=== PATIENT | male | born 1975 | race Caucasian/White ===

== ENCOUNTER → 2019-12-03 11:56 | Outpatient (BNVA) | payer OTHER, SELFPAY | PROVIDERS: Family Provider Nurse Practitioner Family; PCP Nurse Practitioner Family; Visit Provider Nurse Practitioner Family | DX: I10 Essential (primary) hypertension (principal); K21.9 Gastro-esophageal reflux disease without esophagitis; R53.83 Other fatigue; F41.9 Anxiety disorder, unspecified; F32.9 Major depressive disorder, single episode, unspecified; E34.9 Endocrine disorder, unspecified; E55.9 Vitamin D deficiency, unspecified; Z79.899 Other long term (current) drug therapy | CPT/HCPCS: 80053; 80061; 81001; 82607; 83036; 84207; 84425; 84443; 85025 ==

== ENCOUNTER 2019-12-21 08:38 | Outpatient (CLI) | payer OTHER, SELFPAY ==
[2019-12-21 09:42] LABS: Testosterone Total 298.9 ng/dL (249-836)
[2019-12-21 09:47] LABS: Folate Level 11.5 ng/mL (4.5-32.2)
[2019-12-21 10:41] LABS: 25 Hydroxy Vitamin D 32 ng/mL (30-100)
--- NOTE | 2020-02-24 14:40 | PC.NURSE ---
All patient care and charting by SN Bailey (also SONDRA) directly supervised by this nurse.
== END 2019-12-21 08:39 | disposition home or self-care (01) ==
LOC: LAB 08:41
PROVIDERS: PCP Nurse Practitioner Family; Visit Provider Nurse Practitioner Family
DX: F32.9 Major depressive disorder, single episode, unspecified (principal); F41.9 Anxiety disorder, unspecified; R53.83 Other fatigue; E34.9 Endocrine disorder, unspecified; E55.9 Vitamin D deficiency, unspecified
CPT/HCPCS: 82306; 82746; 84403

== ENCOUNTER 2020-04-29 13:45 | Outpatient (CLI) | payer OTHER, SELFPAY ==
--- NOTE | 2020-04-29 13:51 | XR_ITS ---
WS: [id number] Exam: XR lumbar spine 6V w f/e [id number] Date/Time of Exam: 04/29/2020 1:53 PM Reason For Exam: M54.5 - Low back pain No fracture or dislocation. Intervertebral disks are relatively well preserved. No subluxation or ins tability on flexion or extension views. Posterior elements are intact. SI joints are open. Numerous s mall calcifications superimposing the bilateral renal silhouettes and most likely represent multiple renal calculi. XR/XR lumbar spine 6V w f/e [id number] IMPRESSION: 1. Unremarkable lumbar spine series. No subluxation or instability on flexion o r extension views. 2. Numerous small calcifications superimposing the bilateral renal silhouettes most likely renal stones.
== END 2020-04-29 13:46 | disposition home or self-care (01) ==
LOC: RADSHAW 13:46 → RAD 13:46
PROVIDERS: PCP Nurse Practitioner Family; Visit Provider Nurse Practitioner Family
DX: M54.5 Low back pain (principal)
CPT/HCPCS: 72114

== ENCOUNTER 2020-05-11 08:32 | Outpatient (CLI) | payer OTHER, SELFPAY ==
--- NOTE | 2020-05-11 09:35 | MR_ITS ---
WS: [id number] MRI LUMBAR SPINE NONCONTRAST HISTORY: M54.5 - Low back pain COMPARISON: None available. TECHNIQUE: Sagittal and axial multisequence imaging is submitted. Mild RIGHT convex curvature thoracic spine. Normal lumbar alignment with no compression fractures or marrow edema. Mild disc space desiccation at L3-4, L4-5 and L5-S1. Conus terminates normally at L1. L1-L2: Normal. L2-L3: Mild facet joint arthritis and ligamentum flavum hypertrophy. L3-L4: Mild annular disc bulging with a moderate central and RIGHT paracentral disc protrusion. Disc protrusion is deforming the thecal sac and encroaching into the RIGHT lateral recess. Mild narrowing of the central canal. Mild bilateral foraminal stenosis. L4-L5: Mild annular disc bulging and osteophytic ridging. Mild ligamentum flavum hypertrophy and face t disease. Very mild narrowing of the foramen bilaterally L5-S1: Large RIGHT lateral recess and paracentral disc protrusion causing significant deformity of th e RIGHT lateral thecal sac and displacement of the nerve roots. Disc protrusion measures 18 x 12 mm. RIGHT S1 nerve root is posteriorly positioned within the thecal sac and mildly enlarged consistent wi th inflammation. Mild bilateral foraminal stenosis due to osteophyte disease. MR/MR lumbar spine wo con* 10120 IMPRESSION: 1. Large RIGHT paracentral and lateral recess disc protrusion measuring 18 x 1 2 mm at L5-S1. Significant deformity and displacement of the thecal sac and ner ve roots. 2. Moderate central and RIGHT paracentral disc protrusion at L3-4 with encroac hment on the thecal sac and RIGHT lateral recess. 3. Mild bilateral foraminal stenosis due to disc osteophyte disease from L3-4 to L5-S1.
--- NOTE | 2020-05-11 10:00 | CT_ITS ---
WS: [id number] CT ABDOMEN AND PELVIS NONCONTRAST HISTORY: N20.0 - Calculus of kidney TECHNIQUE: Imaging performed through the abdomen and pelvis. Coronal and sagittal reformats are submi tted. All CT scans at [facility] use at least one of these dose optimization techniques: automated exposure control; mA and/or kV adjustment per patient size (includes targeted exams where d ose is matched to clinical indication); or iterative reconstruction. DLP: 1265.38 mGycm COMPARISON: 03/13/2018 Lower thorax: Moderate bronchovascular wall thickening in a linear manner in the RIGHT medial lower l obe. There is adjacent scarring and tenting extending to the pleura. These findings have been present since 03/13/2018 with very mild progression. Heart size is normal. Liver: Normal size liver. No mass or bile duct dilatation. Gallbladder: Normal gallbladder. Pancreas: Normal size and attenuation. Normal pancreatic duct. No pancreatitis or mass. Spleen: Normal. Adrenal glands: Normal. No mass. Right kidney: Microcalcifications in the RIGHT renal pelvis. The largest measures 3 mm in the lower p ole. No obstruction or solid mass. Normal RIGHT ureter. Left kidney: Microcalcifications in the LEFT renal pelvis with the largest measuring 3 mm. No hydrone phrosis or ureteral obstruction. Aorta: Normal abdominal aorta, no aneurysm or atherosclerosis. No free fluid, intraperitoneal air or significant lymphadenopathy. GI tract: Normal appendix. No GI tract obstruction. Abdominal wall: Fat-containing umbilical hernia. Pelvis: Normal. Osseous structures: Unremarkable. CT/CT kidney stone [id number] IMPRESSION: 1. No acute abdominal or pelvic abnormalities. 2. Bilateral nephrolithiasis with no hydronephrosis or obstruction. No uretera l calcification. 3. Normal appendix.
== END 2020-05-11 08:33 | disposition home or self-care (01) ==
PROVIDERS: PCP Nurse Practitioner Family; Visit Provider Nurse Practitioner Family
DX: N20.0 Calculus of kidney (principal); M51.26 Other intervertebral disc displacement, lumbar region; M48.061 Spinal stenosis, lumbar region without neurogenic claudication; M48.07 Spinal stenosis, lumbosacral region
CPT/HCPCS: 72148; 74176

== ENCOUNTER 2020-05-30 06:00 | Outpatient (RCR) | payer OTHER, SELFPAY | END 2020-06-09 23:59 | disposition home or self-care (01) | LOC: SPT 06:00 | PROVIDERS: PCP Nurse Practitioner Family; Referring Provider Orthopaedic Surgery; Visit Provider Orthopaedic Surgery | DX: M51.27 Other intervertebral disc displacement, lumbosacral region (principal) | CPT/HCPCS: 97110; 97161 ==

== ENCOUNTER 2020-06-10 06:00 | Outpatient (RCR) | payer BC, OTHER, SELFPAY | END 2020-06-29 10:39 | disposition home or self-care (01) | LOC: SPT 06:00 | PROVIDERS: PCP Nurse Practitioner Family; Referring Provider Orthopaedic Surgery; Visit Provider Orthopaedic Surgery | DX: M51.27 Other intervertebral disc displacement, lumbosacral region (principal) | CPT/HCPCS: 97110 ==

== ENCOUNTER → 2020-07-05 16:27 | Outpatient (BNVA) | payer BC, SELFPAY | PROVIDERS: PCP Nurse Practitioner Family; Visit Provider Nurse Practitioner Family | DX: Z13.6 Encounter for screening for cardiovascular disorders (principal); I10 Essential (primary) hypertension; E55.9 Vitamin D deficiency, unspecified; D64.9 Anemia, unspecified; R53.83 Other fatigue; R42 Dizziness and giddiness; Z79.899 Other long term (current) drug therapy; H66.93 Otitis media, unspecified, bilateral | CPT/HCPCS: 80053; 80061; 81000; 82306; 83036; 83550; 83735; 83921; 84439; 84443; 84481; 85025 ==

== ENCOUNTER 2020-07-13 06:00 | Outpatient (RCR) | payer BC, SELFPAY | END 2020-08-07 23:59 | disposition home or self-care (01) | LOC: SPT 06:00 | PROVIDERS: PCP Nurse Practitioner Family; Visit Provider Nurse Practitioner Family | DX: R42 Dizziness and giddiness (principal) | CPT/HCPCS: 95992; 97162 ==

== ENCOUNTER 2020-11-11 12:11 | Outpatient (CLI) | payer BC, SELFPAY ==
--- NOTE | 2020-11-11 12:45 | USCV_ITS ---
Marcus Awan Age: 45 Gender: M : 1975 Exam Date: 11/11/2020 12:27 Ordering Phys: KELVIN Durbin APRN [employer] Technologist: Opal Tavarez [place] [facility] [place]: CHEST PAIN BP: 117 / 70 HR: 86 Rhythm: Sinus Technical Quality: Adequate MEASUREMENTS (Male / Female) Normal Values 2D ECHO LV Diastolic Diameter PLAX 3.1 cm 4.2 - 5.9 / 3.9 - 5.3 cm LV Systolic Diameter PLAX 1.7 cm LV Chamber Size 3.7 cm IVS Diastolic Thickness 1.5 cm 0.6 - 1.0 / 0.6 - 0.9 cm IVS Systolic Thickness 2.1 cm LVPW Diastolic Thickness 2.7 cm 0.6 - 1.0 / 0.6 - 0.9 cm LVPW Systolic Thickness 3.0 cm RV Chamber Size 2.7 cm LVOT Diameter 2.1 cm LV Ejection Fraction 2D Teich 77.7 % LV Ejection Fraction MOD 2C 67.2 % LV Ejection Fraction 2C AL 67.6 % LA Diameter 2.7 cm LA Width 2.4 cm LA Height 5.1 cm RA Width 3.3 cm RA Height 4.0 cm Aorta at Sinotubular Diameter 2.7 cm M-MODE LV Diastolic Diameter MM 4.3 cm 4.2 - 5.9 / 3.9 - 5.3 cm LV Systolic Diameter MM 2.6 cm LV Ejection Fraction MM Teich 70.4 % IVS Diastolic Thickness MM 1.0 cm 0.6 - 1.0 / 0.6 - 0.9 cm IVS Systolic Thickness MM 1.2 cm LVPW Diastolic Thickness MM 0.9 cm 0.6 - 1.0 / 0.6 - 0.9 cm LVPW Systolic Thickness MM 1.4 cm Aortic Annulus Diameter 4.4 cm LA Ao Ratio MM 0.7 MV E Point Septal Separation 0.6 cm DOPPLER AV Peak Velocity 154.0 cm/s LVOT Peak Velocity 99.7 cm/s AV Area Cont Eq vti 2.1 cm squared AV Area Cont Eq pk 2.3 cm squared MV Area PHT 4.5 cm squared Mitral E to A Ratio 0.9 MV E' Velocity 41.0 cm/s Mitral E to MV E' Ratio 5.3 Mitral E to LV E' Lateral Ratio 5.3 Mitral E to LV E' Septal Ratio 5.4 TR Peak Velocity 214.3 cm/s TR Peak Gradient 18.4 mmHg TV Peak E Velocity 50.0 cm/s Right Atrial Pressure 3.0 mmHg Pulmonary Artery Systolic Pressu 21.4 mmHg PV Peak Velocity 66.0 cm/s RV Acceleration Time 0.2 s RV Ejection Time 0.4 s RV AcT/ET 0.5 FINDINGS Left Ventricle Normal left ventricular size and systolic function, EF 56 %. Mild left ventricular hypertrophy. No regional wall motion abnormalities. Grade I/IV diastolic dysfunction (abnormal relaxation filling pattern), normal to mildly elevated filling pressures. Right Ventricle The right ventricle is normal in size and function. Right Atrium The right atrium is normal in size. Left Atrium The left atrium is normal in size. Mitral Valve No gross abnormalities noted Aortic Valve Trace aortic valve regurgitation. Aortic valve is minimally thickened Tricuspid Valve No gross abnormalities noted Pulmonic Valve Pulmonic valve not well visualized. Pericardium Normal pericardium without effusion. Aorta Normal ascending aorta dimension. CONCLUSIONS Normal left ventricular size and systolic function, EF 56 %. Mild left ventricular hypertrophy. No regional wall motion abnormalities. Grade I/IV diastolic dysfunction (abnormal relaxation filling pattern), normal to mildly elevated filling pressures. Trace aortic valve regurgitation. Aortic valve is minimally thickened. There is no pericardial effusion. There are no intracardiac masses. No previous study is available for comparison. Dr Hardeep Cedillo MD [facility] (Electronically Signed) Final Date: 14 November 2020 17:26 S
== END 2020-11-11 12:12 | disposition home or self-care (01) ==
PROVIDERS: PCP Nurse Practitioner Family; Visit Provider Nurse Practitioner Family
DX: R07.89 Other chest pain (principal); R53.83 Other fatigue; I35.1 Nonrheumatic aortic (valve) insufficiency
CPT/HCPCS: 93306

== ENCOUNTER 2021-01-23 12:20 | Outpatient (CLI) | payer BC, SELFPAY ==
[2021-01-23 12:30] VITALS: BMI 30.4
--- NOTE | 2021-01-23 13:00 | ECG_ITS ---
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 Interpretive Statements NAME OF STUDY: TREADMILL STRESS TEST INDICATION: [Chest Pain, ] EXERCISE DATA: The patient was exercised by Harry protocol. Baseline heart rate was 67 beats per minute. Baseline blood pressure was 126/86 millimeters of mercury. Target heart rate was 148 beats per minute. Maximum heart rate achieved was 157, which was 106% of the target heart rate. Maximum blood pressure was 168/73 millimeters of mercury. Total exercise time was 10 minutes and 31 seconds. Maximum METs achieved was 13.5, maximum VO2 was 47.3. The reason for ending the test was completion of the protocol. The patient complained of shortness of breath during the stress test, which then resolved at the end of the test. ELECTROCARDIOGRAM: BASELINE: Showed sinus rhythm, normal axis, no significant ST-T changes at the baseline noted. [] EXERCISE: At the peak exercise level, [] No significant ST-T changes suggestive of ischemia noted. [] RECOVERY: During the recovery period, heart rate dropped appropriately. No significant ST-T changes in the recovery suggestive of ischemia noted. [] CONCLUSION: 1. Exercise capacity excellent. 2. Heart rate response was appropriate. 3. Blood pressure response was appropriate. 4. Symptoms not suggestive of ischemia. 5. Electrocardiogram was not suggestive of ischemia. Electronically Signed On 02-19-2021 12:47:35 CDT by Robin Torre M.D. [email or web address]
[2021-01-23 13:06] VITALS: BP 141/88; PULSE 97
== END 2021-01-23 12:21 | disposition home or self-care (01) ==
PROVIDERS: PCP Nurse Practitioner Family; Visit Provider Internal Medicine
DX: R07.89 Other chest pain (principal); R53.83 Other fatigue
CPT/HCPCS: 93017

== ENCOUNTER 2021-08-25 08:13 | Outpatient (CLI) | payer BC, SELFPAY ==
[2021-08-25 09:04] LABS: Basophils % 0.5 %; Eosinophils # 0.1 10^3/uL (0.0-0.8); Eosinophils % 1.4 %; Hematocrit 48.2 % (42.0-52.0); Hemoglobin 16.3 g/dL (11.7-16.6); Lymphocytes # 1.4 10^3/uL (0.8-4.8); Lymphocytes % 32.9 %; Mean Corpuscular HGB Conc 33.8 g/dL (30.0-36.0); Mean Corpuscular Hemoglobin 28.7 pg (28.0-34.0); Mean Corpuscular Volume 84.9 fl (80-94); Mean Platelet Volume 10.9 fL (7.4-10.4); Monocytes # 0.4 10^3/uL (0.2-0.9); Monocytes % 9.1 %; Neutrophils # 2.33 10^3/uL (1.8-7.7); Neutrophils % 55.9 %; Nucleated Red Blood Cells % 0 %; Platelet Count 157 10^3/cmm (130-400); Red Blood Count 5.68 10^6/uL (4.1-5.3); Red Cell Distribution Width 12.8 % (12.1-15.1); White Blood Count 4.2 10^3/uL (4.0-10.0)
[2021-08-25 09:21] LABS: Estmated Average Glucose 111; Hemoglobin A1C 5.5 % (4.0-6.0)
[2021-08-25 09:33] LABS: Alanine Aminotransferase 37 U/L (0-41); Albumin Level 4.9 g/dL (3.5-5.2); Alkaline Phosphatase 53 IU/L (40-130); Aspartate Amino Transferase 22 U/L (0-40); Blood Urea Nitrogen 20 mg/dL (6-20); Carbon Dioxide 28 mmol/L (22-29); Chloride 98 mmol/L (98-107); Chol HDL Ratio 3.13 mg/dL (1.0-5.00); Cholesterol 147 mg/dL (0-200); Glomerular Filtration Rate 80.1 mL/min (90-130); Glucose 101 mg/dL (65-115); HDL Cholesterol 47 mg/dL (60-100); LDL Cholesterol Calculated 79 mg/dL (50-129); LDL HDL Ratio 1.68 RATIO (0.00-3.22); Osmolality Calculated 285 mOsm/kg (285-295); Sodium 136 mmol/L (136-145); Thyroid Stimulating Hormone 2.21 uIU/mL (0.27-4.20); Total Bilirubin 0.9 mg/dL (0.15-1.2); Total Protein 6.9 g/dL (6.6-8.7); Triglycerides 106 mg/dL (0-150)
[2021-08-25 09:36] LABS: Anion Gap 14.2 (5-19); Potassium 4.2 mmol/L (3.5-5.1)
[2021-08-25 10:19] LABS: 25 Hydroxy Vitamin D 45 ng/mL (30-100)
[2021-08-25 11:30] LABS: Add Urine Culture? No; Bacteria Urine TRACE /hpf; Bilirubin Urine Neg (Negative); Blood Urine Neg (Negative); Glucose Urine UA Norm (Normal); Ketones Urine Negative (Negative); Leukocyte Esterase Urine Negative (Negative); Mucus Urine 11 /hpf; Nitrate Urine Negative (Negative); Protein Urine Neg (Negative); Specific Gravity, Urine 1.015 (1.005-1.030); Urine Appearance Clear (CLEAR); Urine Color Yellow (Yellow); Urobilinogen Urine Neg (Negative); pH Urine 6 (5-7)
== END 2021-08-25 08:14 | disposition home or self-care (01) ==
PROVIDERS: PCP Nurse Practitioner Family; Visit Provider Nurse Practitioner Family
DX: Z13.6 Encounter for screening for cardiovascular disorders (principal); Z79.899 Other long term (current) drug therapy; E55.9 Vitamin D deficiency, unspecified; I10 Essential (primary) hypertension
CPT/HCPCS: 80053; 80061; 81001; 82306; 83036; 84443; 85025

== ENCOUNTER → 2022-08-16 14:11 | Outpatient (BNVA) | payer BC, SELFPAY | PROVIDERS: PCP Family Medicine; Visit Provider Orthopaedic Surgery | DX: M54.50 Low back pain, unspecified (principal) | CPT/HCPCS: 72110 ==

== ENCOUNTER 2022-08-23 21:22 | Emergency (ER) | payer BC, SELFPAY ==
[2022-08-23 21:33] VITALS: BP 202/136; PULSE 95; RESP 24; TEMP 36.7; O2SAT 97; BMI 26.9
[2022-08-23 22:29] VITALS: RESP 18
[2022-08-23] MEDS: morphine 4 mg/mL SDV 1 mL IVP (22:29)
[2022-08-23] MEDS: ondansetron 2 mg/ML SDV 2 mL 4 MG IVP (22:30)
[2022-08-23 22:33] VITALS: BP 156/106; PULSE 65; RESP 16; O2SAT 95
[2022-08-23 22:33] LABS: Basophils % 0.2 %; Eosinophils # 0.1 10^3/uL (0.0-0.8); Eosinophils % 0.9 %; Hematocrit 52.1 % (42.0-52.0); Hemoglobin 17.4 g/dL (11.7-16.6); Lymphocytes # 1.5 10^3/uL (0.8-4.8); Lymphocytes % 15.5 %; Mean Corpuscular HGB Conc 33.4 g/dL (30.0-36.0); Mean Corpuscular Hemoglobin 28.7 pg (28.0-34.0); Mean Platelet Volume 10.2 fL (7.4-10.4); Monocytes # 0.6 10^3/uL (0.2-0.9); Monocytes % 6.6 %; Neutrophils # 7.15 10^3/uL (1.8-7.7); Neutrophils % 76.3 %; Nucleated Red Blood Cells % 0 %; Platelet Count 212 10^3/cmm (130-400); Red Blood Count 6.06 10^6/uL (4.1-5.3); Red Cell Distribution Width 12.8 % (12.1-15.1); White Blood Count 9.4 10^3/uL (4.0-10.0)
--- NOTE | 2022-08-23 22:37 | ED_ITS ---
Documented by User: FERNANDO Smith 08/24/22 02:37 HPI - Back Pain/Injury General: Chief Complaint: Back Pain/Injury Stated Complaint: Back Pain Time Seen by Provider: 08/23/22 22:12 History of Present Illness: Patient is in today for back pain. Patient reports that he has low back pain down into his right leg. He reports that he had similar pain 2 years ago and had a major disc protrusion at that time. He reports that Dr. Moss was able to give him high-dose steroids and he got better. He reports that for the past couple of weeks he has been having similar pain again but it has been bearable. He reports that tonight he was laying in bed and he was fine but he turned over to get out of bed and immediate excruciating pain. The patient reports that he cannot bear the pain. He reports that he has seen Dr. Moss when this all started back up a couple weeks ago and he is awaiting an MRI. He denies any loss of bowel or bladder control. He denies any saddle anesthesia. He denies fever, chills, nausea, vomiting. He has been taking hydrocodone at home with no relief. Associated symptoms: Deny abdominal pain, chills, dysuria, fever(s), nausea or vomiting Review of Systems Const: Denies: fever(s), chills or body aches Card: Denies: chest pain, palpitations or irregular heart rhythm Resp: Denies: dyspnea, productive cough or non-productive cough GI: Denies: abdominal pain, nausea or vomiting : Denies: flank pain, difficulty urinating or dysuria Musc: Reports: back pain and extremity pain Neuro: Denies: headache(s), numbness in extremities or weakness in extremities [facility] ED PFSH: Medical History Anemia Anxiety and depression Bilateral acute otitis media Chest tightness DDD (degenerative disc disease), lumbar Environmental and seasonal allergies Essential hypertension Fatigue Fatigue GERD (gastroesophageal reflux disease) Hypertension screen Hypotestosteronemia Impacted cerumen, bilateral Insomnia Lumbar pain with radiation down right leg Medication management Medication management Mixed hyperlipidemia Muscle spasm Protrusion of lumbar intervertebral disc Renal stones Suboptimal echocardiogram Vitamin D deficiency Social History Smoking and tobacco status: former smoker Second hand smoke exposure: No Smoking risk assessment/counseling performed?: No Alcohol intake: former Year of sobriety/quit date alcohol: 2011 Desire information about alcohol rehabilitation?: No Counseling given: No Desire information about substance/drug rehabilitation?: No Counseling given: No Physical Exam Const: COMMON NORMALS: patient oriented x3 and alert OTHER: Patient is in obvious pain. At 1 point patient was in the floor unable to get up. When I walked in patient was in the bed but will only lay in the bed holding his right leg [id number]. He states that the only thing that will take pressure off. Neck/C-Spine: COMMON NORMALS: no JVD Resp: COMMON NORMALS: normal respiratory effort, No use of accessory muscles and clear to auscultation bilaterally AUSCULTATION: clear to auscultation bilaterally Cardio: COMMON NORMALS: no JVD, regular rate, regular rhythm, S1 normal heart sound present, S2 normal heart sound present and No murmurs present (Cardio) RATE: regular rate RHYTHM: regular rhythm HEART SOUNDS: S1 normal heart sound present and S2 normal heart sound present Back/Pelvis: LUMBAR SPINE/LOWER BACK: Yes normal to inspection, Yes pain with ROM and Yes lumbar spinal tenderness Lumbar spinal tenderness location: L4 and L5 Extremity: OTHER: Patient reports normal sensation bilateral lower extremities. Negative foot drop. Neuro: COMMON NORMALS: patient oriented x3 SENSORIUM/ORIENTATION: Yes alert Course Vital Signs: Vital signs: Vital Signs Temperature 98.8 F 08/23/22 22:50 Pulse Rate 76 08/24/22 01:18 Respiratory Rate 16 08/24/22 01:18 Blood Pressure 135/87 08/24/22 01:18 Pulse Oximetry 97 08/24/22 01:18 Oxygen Delivery Me thod 08/23/22 21:33 MDM - Back Pain/Injury Medical Decision Making Consider bulging or herniated disc with spinal compression, lumbar radiculopathy Patient is treated for pain with morphine. CT scan lumbar shows multilevel degenerative disc disease similar to previous MRI in 2020. There is moderate L5-S1 spinal canal stenosis with suspected severe right S1 nerve root compression related to a disc protrusion this can be better evaluated with MRI for follow-up. nonobstructing nephroliths I discussed results of CT scan with the patient and his parents. Patient is also already aware of the kidney stones. He reports those are chronic finding for him. We discussed needing to follow-up with Dr. Moss for continued evaluation and management. Will add muscle relaxant to medication regimen Dr. Moss has already prescribed. Patient verbalized understanding of all instructions and states that he feels better he became very afraid tonight when his pain got so severe suddenly. He states that he will call first thing in the a.m. to schedule appointment with Dr. Moss and go from there. He understands that he should return to the ER for any new or worsening symptoms. Patient is discharged to home in stable condition Labs 08/23/22 22:22 08/23/22 22:22 Radiology Impressions Lumbar Spine CT 08/23/22 23:15 IMPRESSION: 1. Multilevel degenerative disc disease is similar to comparison MRI 05/11/2020. There is moderate L5-S1 spinal canal stenosis with suspected severe right S1 nerve root compression related to a disc protrusion. This can be better evaluated with MRI for follow-up. 2. Nonobstructing left nephroliths. Laboratory Results WBC 9.4 10^3/uL (4.0-10.0) 08/23/22 22: RBC 6.06 10^6/uL (4.1-5.3) H 08/23/22 22:22 Hgb 17.4 g/dL (11.7-16.6) H 08/23/22 22:22 Hct 52.1 % (42.0-52.0) H 08/23/22 22:22 MCV 86.0 fl (80-94) 08/23/22 22: MCH 28.7 pg (28.0-34.0) 08/23/22 22: MCHC 33.4 g/dL (30.0-36.0) 08/23/22 22: RDW 12.8 % (12.1-15.1) 08/23/22: Plt Count 212 10^3/cmm (130-400) 08/23/22 22: MPV 10.2 fL (7.4-10.4) 08/23/22 22: Neut % (Auto) 76.3 % 08/23/22: Lymph % (Auto) 15.5 % 03/16/23 22:22 [place] % (Auto) 6.6 % 08/23/22 22:22 Eos % (Auto) 0.9 % 08/23/22 22:22 Baso % (Auto) 0.2 % 08/23/22 22:22 Neut # (Auto) 7.15 10^3/uL (1.8-7.7) 08/23/22 22:22 Lymph # (Auto) 1.5 10^3/uL (0.8-4.8) 08/23/22 22:22 [place] # (Auto) 0.6 10^3/uL (0.2-0.9) 08/23/22 22:22 Eos # (Auto) 0.1 10^3/uL (0.0-0.8) 08/23/22 22: Baso # (Auto) 0.0 10^3/uL (0.0-0.1) 08/23/22 22:22 Nucleated RBC % (auto) 0 % 08/23/22 22: Nucleated RBCs # 0.0 /100WBC 08/23/22 22:22 Sodium 139 mmol/L (136-145) 08/23/22 22:22 Potassium 4.3 mmol/L (3.5-5.1) 08/23/22 22:22 Chloride 100 mmol/L (98-107) 08/23/22 22:22 Carbon Dioxide 29 mmol/L (22-29) 08/23/22 22:22 Anion Gap 14.3 (5-19) 08/23/22 22:22 BUN 27 mg/dL (6-20) H 08/23/22 22:22 Creatinine 1.0 mg/dL (0.7-1.2) 08/23/22 22:22 GFR Calculation 79.8 mL/min (90-130) L 08/23/22 22:22 Glucose 96 mg/dL (65-115) 08/23/22 22:22 Calculated Osmolality 293 mOsm/kg (285-295) 08/23/22 22:22 Calcium 9.7 mg/dL (8.5-10.5) 08/23/22 22:22 Total Bilirubin 0.7 mg/dL (0.15-1.2) 08/23/22 22:22 AST 13 U/L (0-40) 08/23/22 22:22 ALT 23 U/L (0-41) 08/23/22 22:22 Alkaline Phosphatase 55 U/L (40-130) 08/23/22 22:22 Total Protein 7.2 g/dL (6.6-8.7) 08/23/22 22:22 Albumin 4.4 g/dL (3.5-5.2) 08/23/22 22:22 Globulin 2.8 g/dL (1.3-4.6) 08/23/22 22:22 Discharge Plan Discharge Patient Disposition: Home Clinical Impression: Lumbar radiculopathy, Protrusion of lumbar intervertebral disc, DDD (degenerative disc disease), lumbar Condition: Stable Prescriptions: New cyclobenzaprine 10 mg tablet 10 mg PO TID PRN (Reason: muscle spasm) Qty: 10 0RF No Action hydrochlorothiazide 25 mg tablet See Rx Instructions .ROUTE .COMPLEX Qty: 30 5RF Hold Instructions: Doctor's Order Dose Instruction: Take 1 tablet by mouth once daily Rx Instructions: Take 1 tablet by mouth once daily montelukast 10 mg tablet See Rx Instructions .ROUTE .COMPLEX Qty: 90 2RF Hold Instructions: Doctor's Order Dose Instruction: Take 1 tablet by mouth once daily Rx Instructions: Take 1 tablet by mouth once daily alprazolam 0.25 mg tablet 0.25 mg PO BID PRN (Reason: anxiety) 15 Days Qty: 30 1RF prednisone 20 mg tablet 20 mg PO DAILY Qty: 15 0RF Rx Instructions: 60mg X3 days 40mg X2 days 20mg X 2days hydrocodone-acetaminophen 5-325 mg tablet 1 tab PO Q4H PRN (Reason: pain) 7 Days Qty: 40 0RF pantoprazole 40 mg tablet,delayed release (DR/EC) See Rx Instructions .ROUTE .COMPLEX Qty: 90 0RF Hold Instructions: Doctor's Order Dose Instruction: Take 1 tablet by mouth once daily Rx Instructions: Take 1 tablet by mouth once daily ergocalciferol (vitamin D2) 1,250 mcg (50,000 unit) capsule See Rx Instructions .ROUTE .COMPLEX Qty: 12 1RF Hold Instructions: Doctor's Order Dose Instruction: Take 1 capsule by mouth once a week Rx Instructions: Take 1 capsule by mouth once a week amitriptyline 10 mg tablet See Rx Instructions .ROUTE .COMPLEX Qty: 30 5RF Dose Instruction: Take 1 tablet by mouth once daily Rx Instructions: Take 1 tablet by mouth once daily lisinopril 10 mg tablet 10 mg PO DAILY 90 Days Qty: 90 0RF Discharge Orders: Discharge ED (Routine); Ordered 08/24/22 Ordered By: Anneliese Li Referrals: Javier Lauren DO [Primary Care Provider] - Discharge Diet: Usual diet Discharge Activity: Limit activity as instructed Patient Instructions: Lumbar Disc Herniation (ED) Activity Restrictions/Additional Instructions: Take medication as prescribed as previously ordered by Dr. Moss. Use Flexeril as needed as prescribed. Do not take any other medications that make you sleepy with the Flexeril medication. Do not drive after taking Flexeril. Call to follow-up with Dr. Moss for ongoing evaluation and management. Return to the ER as needed for any new or worsening symptoms Coding Level of Care Code ED Tobacco Sieve Operator for Chg Fwd Documented by User: Leighton Severino DO 08/24/22 07:06 HPI - Back Pain/Injury General: Chief Complaint: Back Pain/Injury Stated Complaint: Back Pain Time Seen by Provider: 08/23/22 22:12 [facility] ED PFSH: Medical History Anemia Anxiety and depression Bilateral acute otitis media Chest tightness DDD (degenerative disc disease), lumbar Environmental and seasonal allergies Essential hypertension Fatigue Fatigue GERD (gastroesophageal reflux disease) Hypertension screen Hypotestosteronemia Impacted cerumen, bilateral Insomnia Lumbar pain with radiation down right leg Medication management Medication management Mixed hyperlipidemia Muscle spasm Protrusion of lumbar intervertebral disc Renal stones Suboptimal echocardiogram Vitamin D deficiency Social History Smoking and tobacco status: former smoker Second hand smoke exposure: No Smoking risk assessment/counseling performed?: No Alcohol intake: former Year of sobriety/quit date alcohol: 2011 Desire information about alcohol rehabilitation?: No Counseling given: No Desire information about substance/drug rehabilitation?: No Counseling given: No Course Vital Signs: Vital signs: Vital Signs Temperature 98.8 F 08/23/22 22:50 Pulse Rate 76 08/24/22 01:18 Respiratory Rate 16 08/24/22 01:18 Blood Pressure 135/87 08/24/22 01:18 Pulse Oximetry 97 08/24/22 01:18 Oxygen Delivery Me thod 08/23/22 21:33 MDM - Back Pain/Injury Medical Decision Making Consider bulging or herniated disc with spinal compression, lumbar radiculopathy Patient is treated for pain with morphine. CT scan lumbar shows multilevel degenerative disc disease similar to previous MRI in 2019. There is moderate L5-S1 spinal canal stenosis with suspected severe right S1 nerve root compression related to a disc protrusion this can be better evaluated with MRI for follow-up. nonobstructing nephroliths I discussed results of CT scan with the patient and his parents. Patient is also already aware of the kidney stones. He reports those are chronic finding for him. We discussed needing to follow-up with Dr. Moss for continued evaluation and management. Will add muscle relaxant to medication regimen Dr. Moss has already prescribed. Patient verbalized understanding of all instructions and states that he feels better he became very afraid tonight when his pain got so severe suddenly. He states that he will call first thing in the a.m. to schedule appointment with Dr. Moss and go from there. He understands that he should return to the ER for any new or worsening symptoms. Patient is discharged to home in stable condition Chart reviewed and patient discussed with midlevel. Agree with assessment and plan. Labs 08/23/22 22:22 08/23/22 22:22 Radiology Impressions Lumbar Spine CT 08/23/22 23:15 IMPRESSION: 1. Multilevel degenerative disc disease is similar to comparison MRI 05/11/2020. There is moderate L5-S1 spinal canal stenosis with suspected severe right S1 nerve root compression related to a disc protrusion. This can be better evaluated with MRI for follow-up. 2. Nonobstructing left nephroliths. Laboratory Results WBC 9.4 10^3/uL (4.0-10.0) 08/23/22 22:22 RBC 6.06 10^6/uL (4.1-5.3) H 08/23/22 22:22 Hgb 17.4 g/dL (11.7-16.6) H 08/23/22: Hct 52.1 % (42.0-52.0) H 08/23/22: MCV 86.0 fl (80-94) 08/23/22: MCH 28.7 pg (28.0-34.0) 08/23/22: MCHC 33.4 g/dL (30.0-36.0) 08/23/22: RDW 12.8 % (12.1-15.1) 08/23/22: Plt Count 212 10^3/cmm (130-400) 08/23/22: MPV 10.2 fL (7.4-10.4) 08/23/22: Neut % (Auto) 76.3 % 08/23/22: Lymph % (Auto) 15.5 % 08/23/22: [place] % (Auto) 6.6 % 08/23/22: Eos % (Auto) 0.9 % 08/23/22: Baso % (Auto) 0.2 % 08/23/22: Neut # (Auto) 7.15 10^3/uL (1.8-7.7) 08/23/22: Lymph # (Auto) 1.5 10^3/uL (0.8-4.8) 08/23/22: [place] # (Auto) 0.6 10^3/uL (0.2-0.9) 08/23/22: Eos # (Auto) 0.1 10^3/uL (0.0-0.8) 08/23/22: Baso # (Auto) 0.0 10^3/uL (0.0-0.1) 08/23/22: Nucleated RBC % (auto) 0 % 08/23/22: Nucleated RBCs # 0.0 /100WBC 08/23/22 22: Sodium 139 mmol/L (136-145) 08/23/22 22: Potassium 4.3 mmol/L (3.5-5.1) 08/23/22: Chloride 100 mmol/L (98-107) 08/23/22 22:22 Carbon Dioxide 29 mmol/L (22-29) 08/23/22 22:22 Anion Gap 14.3 (5-19) 08/23/22 22:22 BUN 27 mg/dL (6-20) H 08/23/22 22:22 Creatinine 1.0 mg/dL (0.7-1.2) 08/23/22 22:22 GFR Calculation 79.8 mL/min (90-130) L 08/23/22 22:22 Glucose 96 mg/dL (65-115) 08/23/22 22:22 Calculated Osmolality 293 mOsm/kg (285-295) 08/23/22 22:22 Calcium 9.7 mg/dL (8.5-10.5) 08/23/22 22:22 Total Bilirubin 0.7 mg/dL (0.15-1.2) 08/23/22 22:22 AST 13 U/L (0-40) 08/23/22 22:22 ALT 23 U/L (0-41) 08/23/22 22:22 Alkaline Phosphatase 55 U/L (40-130) 08/23/22 22:22 Total Protein 7.2 g/dL (6.6-8.7) 08/23/22 22:22 Albumin 4.4 g/dL (3.5-5.2) 08/23/22 22:22 Globulin 2.8 g/dL (1.3-4.6) 08/23/22 22:22 Discharge Plan Discharge Patient Disposition: Home Clinical Impression: Lumbar radiculopathy, Protrusion of lumbar intervertebral disc, DDD (degenerative disc disease), lumbar Condition: Stable Prescriptions: New cyclobenzaprine 10 mg tablet 10 mg PO TID PRN (Reason: muscle spasm) Qty: 10 0RF No Action hydrochlorothiazide 25 mg tablet See Rx Instructions .ROUTE .COMPLEX Qty: 30 5RF Hold Instructions: Doctor's Order Dose Instruction: Take 1 tablet by mouth once daily Rx Instructions: Take 1 tablet by mouth once daily montelukast 10 mg tablet See Rx Instructions .ROUTE .COMPLEX Qty: 90 2RF Hold Instructions: Doctor's Order Dose Instruction: Take 1 tablet by mouth once daily Rx Instructions: Take 1 tablet by mouth once daily alprazolam 0.25 mg tablet 0.25 mg PO BID PRN (Reason: anxiety) 15 Days Qty: 30 1RF prednisone 20 mg tablet 20 mg PO DAILY Qty: 15 0RF Rx Instructions: 60mg X3 days 40mg X2 days 20mg X 2days hydrocodone-acetaminophen 5-325 mg tablet 1 tab PO Q4H PRN (Reason: pain) 7 Days Qty: 40 0RF pantoprazole 40 mg tablet,delayed release (DR/EC) See Rx Instructions .ROUTE .COMPLEX Qty: 90 0RF Hold Instructions: Doctor's Order Dose Instruction: Take 1 tablet by mouth once daily Rx Instructions: Take 1 tablet by mouth once daily ergocalciferol (vitamin D2) 1,250 mcg (50,000 unit) capsule See Rx Instructions .ROUTE .COMPLEX Qty: 12 1RF Hold Instructions: Doctor's Order Dose Instruction: Take 1 capsule by mouth once a week Rx Instructions: Take 1 capsule by mouth once a week amitriptyline 10 mg tablet See Rx Instructions .ROUTE .COMPLEX Qty: 30 5RF Dose Instruction: Take 1 tablet by mouth once daily Rx Instructions: Take 1 tablet by mouth once daily lisinopril 10 mg tablet 10 mg PO DAILY 90 Days Qty: 90 0RF Discharge Orders: Discharge ED (Routine); Ordered 08/24/22 Ordered By: Anneliese Li Referrals: Javier Lauren DO [Primary Care Provider] - Discharge Diet: Usual diet Discharge Activity: Limit activity as instructed Patient Instructions: Lumbar Disc Herniation (ED) Activity Restrictions/Additional Instructions: Take medication as prescribed as previously ordered by Dr. Moss. Use Flexeril as needed as prescribed. Do not take any other medications that make you sleepy with the Flexeril medication. Do not drive after taking Flexeril. Call to follow-up with Dr. Moss for ongoing evaluation and management. Return to the ER as needed for any new or worsening symptoms Coding Level of Care Code ED Tobacco Sieve Operator for Xavier Archuleta
[2022-08-23 22:47] LABS: Alanine Aminotransferase 23 U/L (0-41); Albumin Level 4.4 g/dL (3.5-5.2); Alkaline Phosphatase 55 U/L (40-130); Anion Gap 14.3 (5-19); Aspartate Amino Transferase 13 U/L (0-40); Blood Urea Nitrogen 27 mg/dL (6-20); Calcium 9.7 mg/dL (8.5-10.5); Carbon Dioxide 29 mmol/L (22-29); Chloride 100 mmol/L (98-107); Globulin 2.8 g/dL (1.3-4.6); Glomerular Filtration Rate 79.8 mL/min (90-130); Glucose 96 mg/dL (65-115); Osmolality Calculated 293 mOsm/kg (285-295); Potassium 4.3 mmol/L (3.5-5.1); Sodium 139 mmol/L (136-145); Total Bilirubin 0.7 mg/dL (0.15-1.2); Total Protein 7.2 g/dL (6.6-8.7)
[2022-08-23 22:50] VITALS: TEMP 37.1
--- NOTE | 2022-08-23 23:15 | CTR_ITS ---
PROCEDURE INFORMATION: Exam: CT Lumbar Spine With Contrast Exam date and time: 08/23/2022 11:28 PM Age: 47 years old Clinical indication: Low back pain; Patient HX: C/O worsening back pain. Unable to tolerate sitting position. History of ddd. ; Additional info: Severe back pain with radiculopathy TECHNIQUE: Imaging protocol: Computed tomography of the lumbar spine with contrast. Radiation optimization: All CT scans at this facility use at least one of these dose optimization techniques: automated exposure control; mA and/or kV adjustment per patient size (includes targeted exams where dose is matched to clinical indication); or iterative reconstruction. Contrast material: OMNI 350; Contrast volume: 100 ml; Contrast route: INTRAVENOUS (IV); REPORTING DATA: Count of CT and Cardiac NM exams in prior 12 months: This patient has received 0 known CTs and 0 known cardiac nuclear medicine studies in the 12 months prior to the current study. COMPARISON: MR lumbar spine wo con* [id number] 05/11/2020 9:27 AM RADIATION DOSE METRICS: Total DLP (mGy-cm): 566.78 FINDINGS: Bones/joints: Alignment is near anatomic. The vertebral body heights are maintained. Disc space height loss at L5-S1 is again present. No acute displaced fracture. Large right-sided paracentral disc protrusion L5-S1 with severe right S1 nerve root compression is again present. The spinal canal is again moderately narrowed at L5-S1 which is unchanged. Minimal degenerative disc disease at the other lumbar levels is similar to the comparison MRI. Kidneys and ureters: Nonobstructing left renal stones measuring up to 4 mm are present. Soft tissues: Unremarkable. CT/CT lumbar spine w con [id number] IMPRESSION: 1. Multilevel degenerative disc disease is similar to comparison MRI 05/11/2020. There is moderate L5-S1 spinal canal stenosis with suspected severe right S1 nerve root compression related to a disc protrusion. This can be better evaluated with MRI for follow-up. 2. Nonobstructing left nephroliths.
[2022-08-23] MEDS: iohexol 350 mg/mL 500 mL Btl (per mL) IV (23:31)
[2022-08-24 00:30] VITALS: BP 143/91; PULSE 67; RESP 16; O2SAT 96
[2022-08-24 00:57] VITALS: RESP 16
[2022-08-24] MEDS: morphine 4 mg/mL SDV 1 mL IVP (00:57)
[2022-08-24 01:18] VITALS: BP 135/87; PULSE 76; RESP 16; O2SAT 97
== END 2022-08-24 01:20 | disposition home or self-care (01) ==
PROVIDERS: Emergency Provider Nurse Practitioner Family; PCP Family Medicine
DX: M51.16 Intervertebral disc disorders with radiculopathy, lumbar region (principal); I10 Essential (primary) hypertension; E78.2 Mixed hyperlipidemia; Z87.891 Personal history of nicotine dependence
CPT/HCPCS: 72132; 80053; 85025; 96374; 96375; 96376; 99285; J2270; J2405; Q9967

== ENCOUNTER 2022-09-14 06:50 | Day surgery (SDC) | payer BC, SELFPAY ==
[2022-09-07 08:38] VITALS: BMI 25.7
--- NOTE | 2022-09-07 08:58 | ANES.PREANE2 ---
Pre-Anesthetic Assessment Height/Weight: Height 1.88 m Weight 90.718 kg Operation Date: 09/14/22 12:25 Proposed Procedures p Microdisectomy Lumbar decompression: L5-S1 19991,42349,M51.27,M54.16,M54.5(Right) - Cosmo H Isa, DO s Lumbar Spine Decompression(Right) - Cosmo H Isa, DO Familial anesthetic complications: None Social No alcohol and No tobacco Exam alert, oriented x 3, clear to auscultation bilaterally and regular rate & rhythm Airway Mallampati: Class II Dentition: full CV/HEM Hypertension GI Gastroesophageal Reflux Disease Anesthetic Plan ASA status: 2 Anesthesia: General Risk of > 500 ml blood loss (7ml/kg in children): No Medications/Allergies Home Medications Medication Instructions Recorded Confirmed Last Taken Type lisinopril 10 mg tablet 10 mg PO DAILY 90 days #90 tabs 07/23/22 09/07/22 09/07/22 Rx cyclobenzaprine 10 mg tablet 10 mg PO TID PRN muscle spasm #10 08/24/22 09/07/22 Unknown Rx tabs amitriptyline 10 mg tablet 10 mg PO BEDTIME 09/07/22 09/07/22 09/06/22 History loratadine 10 mg tablet (Claritin) 10 mg PO DAILY 09/07/22 09/07/22 09/07/22 History Allergies Allergy/AdvReac Type Severity Reaction Status Date / Time No Known Allergies Allergy Verified 09/07/22 08:30 [facility] Anesthesia Medical History Anemia Anxiety and depression Bilateral acute otitis media Chest tightness DDD (degenerative disc disease), lumbar Environmental and seasonal allergies Essential hypertension Fatigue Fatigue GERD (gastroesophageal reflux disease) Hypertension screen Hypotestosteronemia Impacted cerumen, bilateral Insomnia Lumbar pain with radiation down right leg Medication management Medication management Mixed hyperlipidemia Muscle spasm Protrusion of lumbar intervertebral disc Renal stones Suboptimal echocardiogram Vitamin D deficiency Social History Smoking and tobacco status: former smoker Second hand smoke exposure: No Smoking risk assessment/counseling performed?: No Alcohol intake: former Year of sobriety/quit date alcohol: 2011 Desire information about alcohol rehabilitation?: No Counseling given: No Desire information about substance/drug rehabilitation?: No Counseling given: No Data Anesthesia Cardiac Studies: Echocardiogram Ultrasound 11/11/20
[2022-09-14] VITALS (8 sets, daily range): BP systolic 129–154; BP diastolic 77–109; PULSE 63–75; RESP 17–20; TEMP 36.2–36.6; O2SAT 96–99
[2022-09-14] MEDS: sodium chloride 0.9% 1,000 ML 30 ML IV (07:26)
--- NOTE | 2022-09-14 08:49 | P.ANESASSM_ITS ---
Pre-Anesthetic Assessment Height/Weight: Height 1.88 m Weight 90.718 kg Temp Pulse Resp BP Pulse Ox O2 Del Method 97.1 F L 73 18 135/90 96 09/14/22 07:07 09/14/22 07:07 09/14/22 07:07 09/14/22 07:07 09/14/22 07:07 09/14/22 07:18 Preop Diagnosis: HNP L5-S1, lumbar radiculopathy Operation Date: 09/14/22 08:35 Proposed Procedures p Microdisectomy Lumbar decompression: L5-S1 69127,10426,M51.27,M54.16,M54.5(Right) - Cosom Moss DO s Lumbar Spine Decompression(Right) - Cosmo Moss DO Last intake: Intake Last Liquid Date 09/13/22 Last Liquid Time 22:00 Last Solid Date 09/13/22 Last Solid Time 17:30 Social No tobacco Exam alert, oriented x 3, clear to auscultation bilaterally and regular rate & rhythm Airway Submandibular: within normal limits Cervical ROM: within normal limits Mallampati: Class II Pulmonary Asthma CV/HEM Hypertension No clinical decompensated heart failure Nephrolithiasis Hepatic None reported GI Gastroesophageal Reflux Disease (well managed and controlled ) Metabolic Diabetes Mellitus and Hyperlipidemia [facility] [place] [place] Osteoarthritis/DJD Neuropsych Anxiety Anesthetic Plan ASA status: 3 Anesthesia: General Medications/Allergies Home Medications Medication Instructions Recorded Confirmed Last Taken Type lisinopril 10 mg tablet 10 mg PO DAILY 90 days #90 tabs 07/23/22 09/07/22 09/13/22 Rx cyclobenzaprine 10 mg tablet 10 mg PO TID PRN muscle spasm #10 08/24/22 09/14/22 08/28/22 Rx tabs amitriptyline 10 mg tablet 10 mg PO BEDTIME 09/07/22 09/14/22 09/13/22 History loratadine 10 mg tablet (Claritin) 10 mg PO DAILY 09/07/22 09/07/22 09/13/22 History Allergies Allergy/AdvReac Type Severity Reaction Status Date / Time No Known Allergies Allergy Verified 09/14/22 07:05 Current Medications Generic Name Dose Route Start Last Admin Trade Name Freq PRN Reason Stop Dose Admin Sodium Chloride 1,000 mls @ 30 mls/hr 09/14/22 07:00 09/14/22 07:26 Sodium Chloride 0.9% IV 09/15/22 06:59 30 mls/hr .Q24H LAURA Administration PFSH Anesthesia Medical History Anemia Anxiety and depression Bilateral acute otitis media Chest tightness DDD (degenerative disc disease), lumbar Environmental and seasonal allergies Essential hypertension Fatigue Fatigue GERD (gastroesophageal reflux disease) Hypertension screen Hypotestosteronemia Impacted cerumen, bilateral Insomnia Lumbar pain with radiation down right leg Medication management Medication management Mixed hyperlipidemia Muscle spasm Protrusion of lumbar intervertebral disc Renal stones Suboptimal echocardiogram Vitamin D deficiency Social History Smoking and tobacco status: former smoker Second hand smoke exposure: No Smoking risk assessment/counseling performed?: No Alcohol intake: former Year of sobriety/quit date alcohol: 2012 Desire information about alcohol rehabilitation?: No Counseling given: No Desire information about substance/drug rehabilitation?: No Counseling given: No Data Anesthesia Cardiac Studies: 2 Echocardiogram Ultrasound 11/11/20
--- NOTE | 2022-09-14 08:58 | W.PM.OPSUD ---
Surgery/Procedure H&P Update DATE OF PROCEDURE: September 14, 2022 DATE H&P PERFORMED: 08/28/22 H&P UPDATE INFORMATION: I have reviewed H&P completed within last 30 days, I have examined patient prior to procedure and No changes to prior documentation PREOP DIAGNOSIS: HNP L5-S1, lumbar radiculopathy PLANNED PROCEDURE: Operation Date: 09/14/22 08:35 Proposed Procedures p Microdisectomy Lumbar decompression: L5-S1 06917,06077,M51.27,M54.16,M54.5(Right) - DO tawanda Velarde Lumbar Spine Decompression(Right) - Cosmo Moss DO
[2022-09-14] MEDS: ceFAZolin 2,000 MG in sodium chloride 0.9% (plus) 50 ML 100 MG IV (09:13)
[2022-09-14] MEDS: lidocaine-epi 1% 20 mL INJ INJECTION (09:54)
--- NOTE | 2022-09-14 10:29 | PM.OP ---
Operative Report Date of procedure: September 14, 2022 Pre-op diagnosis: Preop Diagnosis HNP L5-S1, lumbar radiculopathy Post-op diagnosis: same Procedure done: L5-S1 laminectomy with partial facetectomy and discectomy Surgeon: Cosmo Moss Exercise Instruct: Donald Epps Exercise Instruct: The surgical services director, Donald Epps, TYRONE was needed for his expertise under the microscope. He was important and necessary throughout the procedure to complete in a safe and timely manner. He assisted with patient positioning prepping and draping tissue retraction suctioning of the operative field protection of the dural sac and tissue closure Estimated blood loss (mL): 25 Procedure: L5-S1 laminectomy with partial facetectomy and discectomy Patient is brought to the operative suite. After undergoing anesthesia they are placed in the prone position. All areas of impingement are well padded. Patient is then prepped and draped in the normal sterile fashion. A skin incision is made over the L5-S1 level. This is confirmed under c-arm guidance. A series of dilators are passed and the tubular retractor is docked on the L5 lamina. A bovie is used to clear the soft tissue off the lamina and the L 5/S1 facet joint. A high speed saurabh is then used to perform the laminectomy and take down the medial aspect of the L 5/S1 facet joint. A kerrison rongeure was then used to take down the remaining lamina and smooth the edge of the laminectomy up to the point where the ligamentum flavum attaches. Attention was then brought to the medial aspect of the facet joint. The remaining medial aspect of the superior and inferior aspect of the facet joint were taken down with the kerrison from the pedicle of L5 to S1. The facet joint had significant hypertrophy. Attention was then brought to the Ligamentum Flavum. The ligament was taken down from the lamina of L5 to S1 and out medially to the remaining facet joint. The ligament was thick. The dura was then exposed. The dura was in good repair. The disc was identified D'Errico retractor was placed disc was removed with micropituitary disc was irrigated multiple times all free fragments were removed and extruded disc fragments were removed. The L5 nerve was then traced with a curette out the L5/S1 foramen and found to be adequately decompressed. The S1 nerve was traced with a curette around the S1 use pedicle. The lateral recess was opened with a kerrison helping to further decompress the S1 tuberculosis Past next TTTS Tuberculosis Lumbar surgery with fusion Patient is doing therapy. Discussed case with surgery millimeters scheduled point millimeters injection For this to see what the tubular suit. She is seeing) in relation to in relation to the spine position mostly Paroxysmal atrial tachycardia PACs We will do a discussing tuberculosis spine lumbar spine surgeon's use post postural orthostatic tachycardia syndrome will she could mention that nerve. Wound is then irrigated copiously with saline and surgiflo is used to stop any bleeding. The tubular retractor is removed and the wound is closed with vicryl and monocryl suture. Glue is then used to protect the wound. A sterile dressing is then placed. Patient was then placed in the supine position and transferred to the PACU in stable condition.
--- NOTE | 2022-09-14 10:47 | ANE.PACU2 ---
Inpatient post-anesthesia follow up: Vital signs: Temperature 97.1 F Pulse Rate 66 Respiratory Rate 17 Blood Pressure 138/97 Pulse Oximetry 98 Oxygen Delivery Me thod Room Air Oxygen Flow Rate 6 Fraction of Inspir ed Oxygen Hydration adequate: Yes Nausea and vomiting: No Pain level: 2 Mental status: Baseline
[2022-09-14] MEDS: HYDROcodone-acetaminophen 5-325 mg Tablet 1 TAB PO (11:03)
== END 2022-09-14 11:57 | disposition home or self-care (01) ==
PROVIDERS: PCP Family Medicine; Visit Provider Orthopaedic Surgery
PROC: (CPT 63030; principal; 2022-09-14 08:25)
PROC: (CPT 63005; 2022-09-14 08:25)
DX: M51.27 Other intervertebral disc displacement, lumbosacral region (principal); M54.16 Radiculopathy, lumbar region; K21.9 Gastro-esophageal reflux disease without esophagitis; I10 Essential (primary) hypertension; F32.A Depression, unspecified; E78.2 Mixed hyperlipidemia; F41.9 Anxiety disorder, unspecified; Z87.891 Personal history of nicotine dependence; E11.9 Type 2 diabetes mellitus without complications; M19.90 Unspecified osteoarthritis, unspecified site
CPT/HCPCS: 63030; 72020; J0690; J1100; J1170; J2250; J2405; J2704; J3010; J3490; J7030

== ENCOUNTER → 2022-11-12 08:23 | Outpatient (BNVA) | payer BC, SELFPAY | PROVIDERS: PCP Family Medicine; Visit Provider Family Medicine | DX: I10 Essential (primary) hypertension (principal); E78.2 Mixed hyperlipidemia; E34.9 Endocrine disorder, unspecified; E55.9 Vitamin D deficiency, unspecified; R53.83 Other fatigue; Z13.6 Encounter for screening for cardiovascular disorders | CPT/HCPCS: 80053; 80061; 85025 ==

== ENCOUNTER 2022-12-04 13:13 | Emergency (ER) | payer BC, SELFPAY ==
--- NOTE | 2022-12-04 13:14 | XR_ITS ---
WS: [id number] Exam: XR hand RT min 3V* [id number] Date/Time of Exam: 12/04/2022 1:14 PM Reason For Exam: injury Findings: No fractures, soft tissue swelling, or unusual calcifications are noted. The hand shows normal bony alignment. There is no irregularity of the bony architecture. XR/XR hand RT min 3V* [id number] IMPRESSION: Normal right hand.
[2022-12-04 13:25] VITALS: BP 146/92; PULSE 84; RESP 16; TEMP 36.7; O2SAT 98; BMI 27.6
--- NOTE | 2022-12-04 13:51 | W.ED.EXTPRO ---
HPI - Extremity Problem General: Chief complaint: Extremity Injury, Upper Stated complaint: right hand ring finger trauma, smashed Time Seen by Provider: 12/04/22 13:34 History of Present Illness: Patient is a 47-year-old male comes to the ED with a finger injury on right hand. Injury occurred just prior to arrival. 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 Somehow he got his right fourth finger still from the PIP joint crushed between the pontoon boat and the log. He rates his pain as mild. He has some mild swelling to the distal end of his finger. Denies any skin injury or nail or nailbed injury. He has been applying cold pack on finger since injury. Denies any other complaints. Associated symptoms: Deny chest pain, fever(s) or rash Review of Systems Const: Denies: fever(s), chills or fatigue Eyes: Denies: change in vision or eye discomfort ENMT: Denies: throat pain, odynophagia, nasal discharge or nasal congestion Card: Denies: chest pain, palpitations, edema, swelling of feet/ankles, dyspnea on exertion or orthopnea Resp: Denies: dyspnea, productive cough or non-productive cough GI: Denies: abdominal pain, nausea, vomiting, diarrhea, constipation or hematochezia : Denies: flank pain, difficulty urinating, dysuria or hematuria Musc: Reports: extremity pain (Right hand fourth digit); Denies: neck pain, back pain or extremity swelling Skin/Breast: Denies: rash or new lesions Neuro: Denies: headache(s), numbness in extremities or weakness in extremities [facility] PFSH: Medical History (Updated 12/04/22 @ 13:56 by LA Morris) Anemia Anxiety and depression Bilateral acute otitis media Chest tightness DDD (degenerative disc disease), lumbar Environmental and seasonal allergies Essential hypertension Fatigue GERD (gastroesophageal reflux disease) Hypertension screen Hypotestosteronemia Impacted cerumen, bilateral Insomnia Lumbar pain with radiation down right leg Medication management Medication management Mixed hyperlipidemia Muscle spasm Protrusion of lumbar intervertebral disc Renal stones Suboptimal echocardiogram Vitamin D deficiency Social History Smoking and tobacco status: former smoker Second hand smoke exposure: No Smoking risk assessment/counseling performed?: No Alcohol intake: former Year of sobriety/quit date alcohol: 2011 Desire information about alcohol rehabilitation?: No Counseling given: No Substance/Drug Use: never Desire information about substance/drug rehabilitation?: No Counseling given: No Physical Exam Const: COMMON NORMALS: no acute distress, patient oriented x3 and alert HENMT: COMMON NORMALS: normocephalic HEAD & SCALP: normocephalic MOUTH: Normal oral and palatal mucosa present THROAT: posterior oropharynx normal and uvula midline Neck/C-Spine: COMMON NORMALS: supple GENERAL: Yes normal visual inspection Resp: COMMON NORMALS: normal respiratory effort, No retractions, No use of accessory muscles and clear to auscultation bilaterally AUSCULTATION: clear to auscultation bilaterally Cardio: COMMON NORMALS: regular rate, regular rhythm, S1 normal heart sound present, S2 normal heart sound present, No gallops present (Cardio), No clicks present (Cardio), No murmurs present (Cardio) and Peripheral pulses 2+ throughout RATE: regular rate RHYTHM: regular rhythm HEART SOUNDS: S1 normal heart sound present and S2 normal heart sound present PERIPHERAL PULSES: Peripheral pulses 2+ throughout GI: COMMON NORMALS: Normal to inspection, nondistended, normoactive bowel sounds present, Soft to palpation, non-tender and no masses PALPATION: Yes Soft to palpation : COMMON NORMALS: Yes no CVA tenderness BLADDER/KIDNEY EXAM: Yes no CVA tenderness Back/Pelvis: COMMON NORMALS: no CVA tenderness Extremity: NARRATIVE EXTREMITY EXAM: Right hand?fourth digit?no deformity or ecchymosis noted. He does have some tenderness over middle phalanx. No nailbed or nail damage noted. Full range of motion. No wound seen. Neuro: COMMON NORMALS: patient oriented x3 SENSORIUM/ORIENTATION: Yes alert GAIT: Yes Normal gait present Skin: GENERAL SKIN EXAM: dry skin Course Vital Signs: Vital signs: Vital Signs Temperature 98.0 F 12/04/22 13:25 Pulse Rate 84 12/04/22 13:25 Respiratory Rate 16 12/04/22 13:25 Blood Pressure 146/92 12/04/22 13:25 Pulse Oximetry 98 12/04/22 13:25 Oxygen Delivery Me thod Room Air 12/04/22 13:25 MDM - Extremity (Nontraumatic) Medical Decision Making Patient is a 47-year-old male comes to the ED with a finger injury on right hand. Injury occurred just prior to arrival. Patient says he was working with a [employer] boat and it was sitting up on a log. Somehow he got his right fourth finger still from the PIP joint crushed between the pontoon boat and the log. He rates his pain as mild. He has some mild swelling to the distal end of his finger. Denies any skin injury or nail or nailbed injury. He has been applying cold pack on finger since injury. Denies any other complaints. Vitals stable. Right hand?fourth digit?no deformity or ecchymosis noted. He does have some tenderness over middle phalanx. No nailbed or nail damage noted. Full range of motion. No wound seen. X-ray of right hand showed no acute findings or fractures. Patient was given dose of Toradol here in the ED and was stable for discharge home. He was diagnosed with crushing injury of distal finger and told to follow-up with his PCP in the next week for reevaluation. Return to ED precautions given. Patient understood and agreed with plan. Lab Data Radiology Impressions Hand X-Ray 12/04/22 13:14 IMPRESSION: Normal right hand. Discharge Plan Discharge Patient Disposition: Home Clinical Impression: Crushing injury of distal finger Qualifiers: Encounter type: initial encounter Qualified Code(s): S67.10XA - Crushing injury of unspecified finger(s), initial encounter Condition: Stable Prescriptions: No Action mecobalamin (vitamin B12) 5,000 mcg tablet,disintegrating PO lisinopril 10 mg tablet See Rx Instructions .ROUTE .COMPLEX Qty: 90 3RF Dose Instruction: Take 1 tablet by mouth once daily for 90 days Rx Instructions: Take 1 tablet by mouth once daily for 90 days loratadine [Claritin] 10 mg Tablet 10 mg PO DAILY amitriptyline 10 mg tablet 10 mg PO BEDTIME Hold Instructions: Dose Change Discharge Orders: Discharge ED (Routine); Ordered 12/04/22 Ordered By: Gonzalez Lemus Referrals: Nhan Wilson MAINFRAME SYSTEMS ENGINEER [Primary Care Provider] - Discharge Diet: Regular Discharge Activity: Increase activity as tolerated Activity Restrictions/Additional Instructions: Follow-up with medical provider as directed in the next 5 to 7 days for reevaluation. Apply cold pack on finger multiple times a day to help with symptoms. Take [id number] ibuprofen or Tylenol for pain return to the ER or your medical provider if condition worsens. Please read and understand discharge instructions. Thank you for choosing [facility] for your healthcare needs today. Please realize this is an emergency room and that we are providing you with a medical screening exam and this may not be complete and all inclusive of all the testing and or work up that you may need to determine your ailment or severity of your illness. It is very important that you follow up as instructed or that you return to the Emergency Department should you have concerns or if your condition changes or worsens in any way. Coding Level of Care Code ED Photolithographic Stripper for Xavier Archuleta
[2022-12-04] MEDS: ketorolac 60 mg/2 mL INJ IM (14:10)
== END 2022-12-04 14:19 | disposition home or self-care (01) ==
PROVIDERS: Emergency Provider Physician Assistant; PCP Clinical Nurse Specialist Adult Health
DX: S67.194A Crushing injury of right ring finger, initial encounter (principal); W23.0XXA Caught, crushed, jammed, or pinched between moving objects, initial encounter; I10 Essential (primary) hypertension; E78.2 Mixed hyperlipidemia; Z87.891 Personal history of nicotine dependence
CPT/HCPCS: 73130; 96372; 99284; J1885